=== PATIENT | female | born 1955 | race African-American/Black ===

== ENCOUNTER 2019-03-03 13:38 | Outpatient (CLI) | payer MEDICARE, MEDICAID ==
[~2019-03-03 13:38] MED LIST: Gadobenate Dimeglumine 529 MG/1 ML (20ML VIAL) ONE
--- NOTE | 2019-03-03 14:25 | ULT ---
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 FINDINGS: A small amount of plaque formation is seen on the right carotid bulb. The peak systolic velocity in the right ICA measures 55 cm/s with an end-diastolic velocity of 20 cm/ s and a systolic ratio of 1.06. The peak systolic velocity in the left ICA measures 55 cm/s with an end-diastolic velocity of 23 cm/s and a systolic ratio of 0.87. Flow in both vertebral arteries remains antegrade. IMPRESSION: No evidence of hemodynamically significant stenosis in either ICA.
--- NOTE | 2019-03-03 16:11 | MRI ---
Brain MRI with and without contrast: 03/03/2019 COMPARISON: None HISTORY: Headaches in the occipital region radiating to the vertex, history of stroke in 2009 TECHNIQUE: Multiplanar multisequence MR imaging of the brain is provided with and without contrast FINDINGS: The diffusion weighted imaging demonstrates no evidence for acute infarction. There is nonspecific diffuse cerebellar volume loss. In addition to the volume loss diffusely involvi ng the cerebellum there is a band of increased T2 and FLAIR signal within the posterior aspect of bilateral cerebellar hemispheres. There is no associated restricted diffusion. There is also no enhan cement associated with the abnormal T2 and FLAIR signal within the bilateral cerebellar hemispheres. No mass effect is seen in this region. Arterial flow voids at the axial level of the skull base appear grossly unremarkable on the T2 imagin g. The imaged paranasal sinuses/mastoid air cells are unremarkable. The postcontrast imaging demonstrates no abnormal enhancement within the brain parenchyma. 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 IMPRESSION: Cerebellar volume loss. In addition, there is a band of increased T2 and FLAIR signal wit hin the midportion of the bilateral cerebellar hemispheres posteriorly. This is likely on the basis of chronic encephalomalacia. Degree of acute edema cannot be fully excluded. Thus, short-term follow- up brain MRI is suggested in 4-6 weeks. Cerebellar volume loss can be seen on the basis of prior medication use. Transcribed Date/Time: 03/03/2019 4:52 PM
== END 2019-03-03 13:39 | disposition home or self-care (01) ==
LOC: SCSMRI 13:38
PROVIDERS: ATTEND Psychiatry & Neurology Neurology
DX: I66.01 Occlusion and stenosis of right middle cerebral artery (principal); G93.89 Other specified disorders of brain
CPT/HCPCS: 70553; 82565; 93880; A9577